=== PATIENT | female | born 1990 ===

== ENCOUNTER 2024-06-12 09:41 | Outpatient (AMB) | payer OTHER, SELFPAY ==
--- NOTE | 2024-06-12 09:48 | AM.OFFWIN_ITS ---
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 He symptoms have been ongoing for the past 3 days and has progressively worsened. She has been taking Tylenol and supportive therapy without improvement. 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 She reports associated chills and weakness. She denies headache, cough, fever. [facility] Social History Patient Tobacco Use Status: Current everyday Tobacco user Patient : No Female Reproductive History Menstrual Date of last menstrual period: 05/29/24 Review of Systems Const Details: Const Denies chills, Denies fatigue, Denies fever(s), Denies headache(s) and Denies weakness ENT Reports as per HPI Resp Denies cough, Denies dyspnea, Denies wheezing and Denies other (shortness of breath) Cardio Denies chest pain, Denies lightheadedness, Denies dyspnea and Denies other (palpitations) Neuro Denies dizziness, Denies headache(s), Denies numbness, Denies tingling and Denies weakness Endo Denies fatigue Aller/Immun Denies wheezing Physical Exam Vital Signs: Last Vital Signs Temp 97.8 F 06/12/24 09:53 Pulse 103 H 06/12/24 09:53 Resp 16 06/12/24 09:53 BP 130/82 06/12/24 09:53 Pulse Ox 96 06/12/24 09:53 Oxygen Delivery Method Room Air 06/12/24 09:53 BMI result Body Mass Index 32.7 Const Other: Const General: well developed; No acute distress Nutritional Appearance: well nourished Orientation/consciousness: patient oriented x3 HEENT Head is normocephalic Right TM surrounded with significant erythema, no bulging, no effusion. Left TM is normal Nasal turbinates are pink and moist Oropharynx with mild erythema, no edema, patches, or exudates Right frontal and maxillary sinus tenderness to palpation No auricular or cervical lymphadenopathy Eyes General: appearance normal, both eyes and all related structures Pupils: Equal, round and reactive pupils present EOM: EOMs intact bilaterally Resp Effort & Inspection: normal respiratory effort Auscultation: clear to auscultation bilaterally Cardio Rate: regular rate Rhythm: regular rhythm Heart sounds: S1 normal heart sound present, S2 normal heart sound present, no gallops, no murmurs and no rubs Bruits: no abdominal aortic bruits and no carotid bruits Neuro General: patient oriented x3 and gait normal, no focal neuro deficit Cranial nerves: Yes Equal, round and reactive pupils present Psych Affect: normal affect Results AMB Rapid Strep AMB Rapid Strep Negative Last Edit by Jonna Pope on 06/12/24 11:43 Results Reviewed Results Reviewed: Laboratory Last Values Strep Scn [facility] Negative 06/12/24 11:32 Assessment & Plan Assessment & Plan (1) Otitis media of right ear: Code(s): H66.91 - Otitis media, unspecified, right ear Plan: Right ear pain/congestion x3 days; progressively worsened Right TM surrounded with significant erythema, no bulging, no effusion Right frontal and maxillary sinus tenderness to palpation Z-Jessica ordered. Advised to take as prescribed. Instructed on the risks, benefits, potential adverse reactions of the medication May take Tylenol ibuprofen for pain or discomfort Adequate hydration encouraged Work note given Follow-up with worsening or new symptoms Verbalized understanding and agreed with the treatment plan (2) Pharyngitis: Code(s): J02.9 - Acute pharyngitis, unspecified Plan: Sore throat x3 days; progressively worsened Oropharynx with mild erythema, no edema, patches, or exudates Rapid strep test is negative Plan as above Orders: Orders AMB Rapid Strep Screen Today H66.91 - Otitis media, unspecified, right ear Medications: New azithromycin (Zithromax TRI-JESSICA) zpak 500 mg PO DAILY 6 tabs 0RF 6 days Coding Level of Care Code Est Pt Level 3 (06584) Diagnoses Otitis media of right ear H66.91 Pharyngitis J02.9
[2024-06-12 09:53] VITALS: BP 130/82; PULSE 103; RESP 16; TEMP 36.6; O2SAT 96; BMI 32.7
== END 2024-06-12 11:33 | disposition home or self-care (01) ==
PROVIDERS: Visit Provider Nurse Practitioner Family
DX: H66.91 Otitis media, unspecified, right ear (principal); J02.9 Acute pharyngitis, unspecified

== ENCOUNTER → 2024-06-12 09:41 | Outpatient (BNVA) | payer OTHER, SELFPAY | DX: H66.91 Otitis media, unspecified, right ear (principal); J02.9 Acute pharyngitis, unspecified | CPT/HCPCS: 87880; 99212 ==

== ENCOUNTER 2024-06-19 09:48 | Outpatient (AMB) | payer OTHER, SELFPAY ==
--- NOTE | 2024-06-19 09:51 | MHC.OFFWIV ---
Intake Vital Signs 06/19/24 09:56 Height 5 ft 8 in Weight 213 lb BMI 32.4 BP 122/70 Blood Pressure Location Lt brachial Position Sitting Respiration 15 Pulse 117 H Pulse Source Pulse Oximeter Temp 98.1 F Temp Source Oral Pulse Oximetry (%) 97 Oxygen Delivery Method Simple Mask Intake Visit Reasons: est/fever/aches/ right ear issues Intake Note: Patient complaining of right ear ache, headache, and fever. Patient also complaining of having trouble sleeping. Patient Tobacco Use Status: Current everyday Tobacco user Allergies No Known Allergies Allergy (Verified 06/19/24 10:01) Medication List - Last Reconciled 06/19/24 by Tyesha Wood CNP azithromycin (Zithromax TRI-JESSICA) 500 mg PO DAILY 6 days hydroxyzine pamoate 50 mg PO BID PRN Do you need a note to return to daycare/school/sports/work: Yes (for yesterday and today) Return to daycare/school/sports/work/other note: work HPI HPI Comments History of Present Illness Details 34-year-old female presents with complaints of right ear pain and right-sided headache. She had a fever of 101.4 yesterday. She notes that she currently has chills and fatigue. No fever or body aches. She was treated with Z-Jessica for otitis media of the right ear 8 days ago. She notes that she completed the course of the antibiotic. She has also been taking Tylenol and ibuprofen as needed. She does not have a primary care provider. [facility] Social History Patient Tobacco Use Status: Current everyday Tobacco user Review of Systems Const Details: HEENT Reports as by HPI Cardiac Denies chest pain, Denies claudication, Denies leg edema, Denies lightheadedness, Denies palpitations, Denies dyspnea, Denies dyspnea on exertion, Denies orthopnea and Denies other (Loss of consciousness) Resp Denies cough, Denies excessive phlegm production, Denies dyspnea, Denies dyspnea on exertion, Denies snoring and Denies wheezing Physical Exam Const Other: General: comfortable and no acute distress Orientation/consciousness: patient oriented x3 HEENT Head is normocephalic Right TM with surrounding erythema and partial bulging, no effusion Nasal turbinates and oropharynx are pink and moist Sinuses are nontender with palpation No auricular or cervical lymphadenopathy Chest Chest palpation & inspection: normal inspection of the chest Resp Auscultation: clear to auscultation bilaterally Cardiac Palpation: normal PMI Heart sounds: S1 normal heart sound present, S2 normal heart sound present, no gallops, no murmur, no rubs Assessment & Plan Assessment & Plan (1) Otitis media of right ear: Code(s): H66.91 - Otitis media, unspecified, right ear Plan: Right TM with surrounding erythema and partial bulging, no effusion She completed course of Z-Jessica which was likely ineffective Will start amoxicillin 875 mg twice daily for 7 days. Advised to take as prescribed and with food. Instructed on the risks, benefits, and potential adverse reactions of the medications May take Tylenol ibuprofen for pain, discomfort, or fever Work note given as requested Encouraged to establish with a PCP for long-term follow-up Return with worsening or new symptoms Verbalized understanding and agreed with treatment plan Medications: New amoxicillin 875 mg PO Q12H 7 days 14 tabs 0RF Discontinued azithromycin (Zithromax TRI-JESSICA) zpak Discontinued Reason: Doctor's Order 500 mg PO DAILY 6 days 6 tabs 0RF Coding Level of Care Code Est Pt Level 3 (68101) Diagnoses Otitis media of right ear H66.91
[2024-06-19 09:56] VITALS: BP 122/70; PULSE 117; RESP 15; TEMP 36.7; O2SAT 97; BMI 32.4
== END 2024-06-19 10:25 | disposition home or self-care (01) ==
PROVIDERS: Visit Provider Nurse Practitioner Family
DX: H66.91 Otitis media, unspecified, right ear (principal)

== ENCOUNTER → 2024-06-19 09:48 | Outpatient (BNVA) | payer OTHER, SELFPAY | DX: H66.91 Otitis media, unspecified, right ear (principal) | CPT/HCPCS: 99212 ==